=== PATIENT | male | born 1950 | race Two or more races ===

== ENCOUNTER 2021-12-12 08:40 | Inpatient (IN) | payer MEDICARE, MEDICAID ==
[~2021-12-12] VITALS: Ht 172.7 cm; Wt 85.3 kg
[2021-12-12] MEDS ORDERED: ENALAPRIL 2.5MG/2ML VIAL 2ML IV ONE (09:45)
[2021-12-12] MEDS ORDERED: FUROSEMIDE 40MG/4ML VIAL IVP ONE (09:45)
[2021-12-12] MEDS ORDERED: ENALAPRIL 1.25MG/ML VIAL 1ML IV NR (09:45)
[2021-12-12 10:23] LABS: HEMATOCRIT. 31.1 % (42.0-52.0); HEMOGLOBIN. 10.5 g/dL (14.0-18.0); MEAN CORPUSCULAR HEMOGLOBIN 35.1 pg (28.0-32.0); MEAN CORPUSCULAR VOLUME 103.6 fL (80.0-94.0); MEAN PLATELET VOLUME 8.8 fl (7.4-10.4); PLATELET 137 x1000/uL (130-400); RED CELL DISTRIBUTION WIDTH 16.8 % (11.6-14.6)
[2021-12-12 10:29] LABS: CHLORIDE 92 mEq/L (98-107)
[2021-12-12 10:58] LABS: NUCLEATED RED BLOOD CELLS 1 /100 WBC
[2021-12-12 10:59] LABS: PLATELET ESTIMATE NORMAL
[2021-12-12] MEDS ORDERED: HYDROCODONE/ACETAMINOPHEN 5/325MG TABLET PO PRN (11:15)
[2021-12-12] MEDS ORDERED: MORPHINE SULFATE 2 MG/ML CPJ (NOT FOR IM USE) IV PRN (11:15)
[2021-12-12] MEDS ORDERED: ONDANSETRON HCL 4MG/2ML INJ IV PRN (11:15)
[2021-12-12] MEDS ORDERED: CLONIDINE 0.1MG TABLET PO PRN (11:15)
[2021-12-12] MEDS ORDERED: GUAIFENESIN 200MG/10ML SUGAR FREE UDC PO PRN (11:15)
[2021-12-12] MEDS ORDERED: DOCUSATE SODIUM 100MG CAPSULE PO PRN (11:15)
[2021-12-12] MEDS ORDERED: IPRATROPIUM/ALBUTEROL 0.5-3(2.5)MG/3ML NEB HHN PRN (11:15)
[2021-12-12] MEDS ORDERED: ACETAMINOPHEN 325MG TABLET PO PRN ×2 (11:15)
[2021-12-12] MEDS ORDERED: LORAZEPAM 2MG/ML CPJ IV PRN (11:15)
[2021-12-12] MEDS ORDERED: MAGNESIUM/ALUMINUM HYDROXIDE/SIMETHICONE 30ML UDC PO PRN (11:15)
[2021-12-12] MEDS ORDERED: ACETAMINOPHEN 650MG SUPP PR PRN ×2 (11:15)
[2021-12-12] MEDS ORDERED: NALOXONE HCL 0.4MG/ML VIAL IV PRN (12:00)
[2021-12-12] MEDS: AMLODIPINE 10MG TABLET PO SCH (12:24)
[2021-12-12] MEDS: LOSARTAN POTASSIUM 50 MG TABLET PO SCH (12:24)
[2021-12-12 21:09] LABS: CREATINE KINASE 119 IU/L (39-308)
[2021-12-12] MEDS: CARVEDILOL 3.125 MG TABLET PO SCH (21:43)
[2021-12-13] VITALS (12 sets, daily range): BP systolic 125–171; BP diastolic 46–105
[2021-12-13 05:03] LABS: HEMATOCRIT. 28.7 % (42.0-52.0); HEMOGLOBIN. 9.8 g/dL (14.0-18.0); MEAN CORPUSCULAR HEMOGLOBIN 34.9 pg (28.0-32.0); MEAN CORPUSCULAR VOLUME 102.8 fL (80.0-94.0); MEAN PLATELET VOLUME 9.7 fl (7.4-10.4); PLATELET 130 x1000/uL (130-400); RED CELL DISTRIBUTION WIDTH 16.9 % (11.6-14.6)
[2021-12-13 05:56] LABS: CHLORIDE 95 mEq/L (98-107)
[2021-12-13 05:57] LABS: CREATINE KINASE 118 IU/L (39-308)
[2021-12-13 05:58] LABS: HDL CHOLESTEROL 36 mg/dL (40-59); LDL CHOLESTEROL 73 mg/dL (5-100)
[2021-12-13 06:31] LABS: PLATELET ESTIMATE NORMAL
[2021-12-13] MEDS: LOSARTAN POTASSIUM 50 MG TABLET PO SCH (10:38)
[2021-12-13] MEDS: AMLODIPINE 10MG TABLET PO SCH (10:39)
[2021-12-13] MEDS: CARVEDILOL 3.125 MG TABLET PO SCH ×2 (10:39→21:00)
[2021-12-13] MEDS ORDERED: LIDOCAINE/PRILOCAINE CREAM 5 GM TUBE TOP SCH (16:15)
[2021-12-13 18:43] LABS: HEPATITIS B SURFACE ANTIGEN NEGATIVE
[2021-12-13] MEDS ORDERED: EPOETIN ALFA-EPBX 4,000 UNIT/ML VIAL SUBCUT SCH (21:00)
[2021-12-13] MEDS ORDERED: DIPHENHYDRAMINE 50MG/ML VIAL IV PRN (22:45)
[2021-12-14] VITALS (16 sets, daily range): BP systolic 117–153; BP diastolic 55–109
[2021-12-14 07:10] LABS: BASOPHILS % 0.9 % (0.0-2.0); EOSINOPHILS % 1.6 % (0.0-5.0); HEMATOCRIT. 27.5 % (42.0-52.0); HEMOGLOBIN. 9.5 g/dL (14.0-18.0); LYMPHOCYTES % 13.5 % (20.0-50.0); MEAN CORPUSCULAR HEMOGLOBIN 35.2 pg (28.0-32.0); MEAN PLATELET VOLUME 9.2 fl (7.4-10.4); MONOCYTES % 14.3 % (2.0-8.0); NEUTROPHILS % 69.7 % (40.0-76.0); PLATELET 130 x1000/uL (130-400); RED CELL DISTRIBUTION WIDTH 16.5 % (11.6-14.6)
[2021-12-14 08:29] LABS: PHOSPHORUS 3.2 mg/dL (2.5-4.9)
[2021-12-14] MEDS: CARVEDILOL 3.125 MG TABLET PO SCH ×2 (10:09→20:56)
[2021-12-14] MEDS: AMLODIPINE 10MG TABLET PO SCH (10:10)
[2021-12-14] MEDS: LOSARTAN POTASSIUM 50 MG TABLET PO SCH (10:10)
[2021-12-15] VITALS (10 sets, daily range): BP systolic 135–169; BP diastolic 69–99
[2021-12-15 08:12] LABS: BASOPHILS % 0.3 % (0.0-2.0); EOSINOPHILS % 0.9 % (0.0-5.0); HEMATOCRIT. 28.8 % (42.0-52.0); HEMOGLOBIN. 9.8 g/dL (14.0-18.0); MEAN CORPUSCULAR HEMOGLOBIN 34.8 pg (28.0-32.0); MEAN CORPUSCULAR VOLUME 102.4 fL (80.0-94.0); MEAN PLATELET VOLUME 9.5 fl (7.4-10.4); MONOCYTES % 14.9 % (2.0-8.0); NEUTROPHILS % 71.9 % (40.0-76.0); PLATELET 143 x1000/uL (130-400); RED BLOOD CELL COUNT 2.81 mill/uL (4.7-6.1); RED CELL DISTRIBUTION WIDTH 16.9 % (11.6-14.6)
[2021-12-15] MEDS ORDERED: LOSA50TA3 PO (12:25)
[2021-12-15] MEDS ORDERED: AMLO10TA80 PO (12:25)
[2021-12-15] MEDS ORDERED: COR3 PO (12:25)
[2021-12-15] MEDS: AMLODIPINE 10MG TABLET PO SCH (15:25)
[2021-12-15] MEDS: CARVEDILOL 3.125 MG TABLET PO SCH (15:25)
[2021-12-16] MEDS ORDERED: LOSARTAN POTASSIUM 50 MG TABLET PO SCH (09:00)
== END 2021-12-15 18:11 | disposition home or self-care (01) | DRG 291 ==
LOC: ER 08:40 → EDBEDREQ 09:43 → 5EST 10:13 → EDBEDREQSVC 10:19 → EDBEDREQ 10:19 → EDBEDREQTM 10:19 → EDBEDREQSVC 11:51 → EDBEDREQTM 11:52 → ENRESERV 12-13 06:09
PROVIDERS: ADMIT Family Medicine Adult Medicine; ATTEND Family Medicine Adult Medicine
PROC: 5A09357 Assistance with Respiratory Ventilation, Less than 24 Consecutive Hours, Continuous Positive Airway Pressure (ICD-10-PCS; principal; 2021-12-12)
PROC: 5A1D70Z Performance of Urinary Filtration, Intermittent, Less than 6 Hours Per Day (ICD-10-PCS; 2021-12-13)
PROC: 5A1D70Z Performance of Urinary Filtration, Intermittent, Less than 6 Hours Per Day (ICD-10-PCS; 2021-12-15)
DX: I13.2 Hypertensive heart and chronic kidney disease with heart failure and with stage 5 chronic kidney disease, or end stage renal disease (principal); I50.23 Acute on chronic systolic (congestive) heart failure; J96.00 Acute respiratory failure, unspecified whether with hypoxia or hypercapnia; N18.6 End stage renal disease; E11.22 Type 2 diabetes mellitus with diabetic chronic kidney disease; F17.210 Nicotine dependence, cigarettes, uncomplicated; I25.10 Atherosclerotic heart disease of native coronary artery without angina pectoris; R77.8 Other specified abnormalities of plasma proteins; I16.0 Hypertensive urgency; I25.5 Ischemic cardiomyopathy; J44.9 Chronic obstructive pulmonary disease, unspecified; D63.1 Anemia in chronic kidney disease; I34.0 Nonrheumatic mitral (valve) insufficiency; I37.1 Nonrheumatic pulmonary valve insufficiency; I42.0 Dilated cardiomyopathy; Z85.528 Personal history of other malignant neoplasm of kidney; Z20.822 Contact with and (suspected) exposure to COVID-19; Z90.5 Acquired absence of kidney; Z95.1 Presence of aortocoronary bypass graft; Z99.2 Dependence on renal dialysis; I25.2 Old myocardial infarction
CPT/HCPCS: 36415; 71045; 80048; 80053; 80061; 82550; 82553; 82962; 83735; 83880; 84100; 84443; 84484; 85025; 86705; 86709; 86803; 87340; 87426; 93005; 93306; 94660; 97162; 97166; 99291; C9803; J0885; J1200; J1940; J3490